=== PATIENT | male | born 1975 | race Hispanic/Latino ===

== ENCOUNTER 2017-11-23 17:42 | Emergency (ER) | payer SELFPAY ==
[~2017-11-23] VITALS: Ht 157.5 cm; Wt 83.4 kg
[2017-11-23 18:14] LABS: HEMATOCRIT 41.8 % (39.0-50.0); IMMATURE GRANULOCYTES 0.7 % (0.0-5.0); MEAN CELL VOLUME 93.9 fL CALC (80.0-100.0); MEAN CORPUSCULAR HGB 31.5 pG CALC (26.0-32.0); MEAN CORPUSCULAR HGB CONC 33.5 g/L CALC (32.0-36.0); NEUT# 4.01 thou/uL (1.82-7.42); RED BLOOD COUNT 4.45 mill/uL (4.70-6.10); RED CELL DISTRI WIDTH 13.2 % (11.5-15.5)
[2017-11-23 18:32] LABS: ALBUMIN 4.6 g/dL (3.2-5.0); ALKALINE PHOSPHATASE 78 u/l (38-126); ANION GAP 19 (6-22 (CALC)); BILIRUBIN, TOTAL 0.8 mg/dL (0.0-1.4); BUN 14 mg/dL (9-20); BUN/CREATININE RATIO 18 (12-20 (CALC)); CARBON DIOXIDE 22 mmol/l (22-30); CHLORIDE 104 mmol/l (95-108); CREATININE 0.7 mg/dL (0.7-1.3); GFR > 60 ML/MIN (>=60 (CALC)); GFR FOR AFR.AMER. > 60 ML/MIN (>=60 (CALC)); LIPASE 54 u/l (23-300); POTASSIUM 3.8 mmol/l (3.5-5.1); SGOT/AST 46 u/l (17-59); SGPT/ALT 57 u/l (21-72); SODIUM 141 mmol/l (137-146); TOTAL PROTEIN 7.7 g/dL (6.3-8.2)
[2017-11-23] MEDS ORDERED: TORADOL PO (19:45)
[2017-11-23 20:30] VITALS: BP 110/53
== END 2017-11-23 20:33 | disposition home or self-care (01) | DRG 313 ==
LOC: ED 17:42 → EDBD 17:42 → ED 17:59
PROVIDERS: Emergency Medicine
DX: R07.9 Chest pain, unspecified (principal); M79.602 Pain in left arm

== ENCOUNTER 2018-10-19 18:34 | Emergency (ER) | payer SELFPAY ==
[~2018-10-19] VITALS: Ht 157.5 cm; Wt 87.8 kg
[~2018-10-19 18:34] MED LIST: TORADOL PO
[2018-10-19] MEDS ORDERED: KEFLEX500 M1 PO (19:37)
[2018-10-19] MEDS ORDERED: BACTRIM DS1 TAB PO (19:37)
[2018-10-19] MEDS ORDERED: BACTROBAN TOP (19:37)
[2018-10-19 19:40] VITALS: BP 127/85
== END 2018-10-19 20:00 | disposition home or self-care (01) | DRG 603 ==
LOC: EDBD 18:34 → ED 18:34
DX: L03.116 Cellulitis of left lower limb (principal); L02.416 Cutaneous abscess of left lower limb; B95.62 Methicillin resistant Staphylococcus aureus infection as the cause of diseases classified elsewhere

== ENCOUNTER 2018-11-20 07:55 | Emergency (ER) | payer SELFPAY ==
[~2018-11-20] VITALS: Ht 157.5 cm; Wt 84.1 kg
[~2018-11-20 07:55] MED LIST changes: +BACTRIM DS1 TAB PO; +BACTROBAN TOP; +KEFLEX500 M1 PO
[2018-11-20 08:28] LABS: HEMATOCRIT 41.2 % (39.0-50.0); HEMOGLOBIN 13.8 g/dl (14.0-18.0); IMMATURE GRANULOCYTES 0.4 % (0.0-5.0); MEAN CELL VOLUME 94.3 fL CALC (80.0-100.0); MEAN CORPUSCULAR HGB 31.6 pG CALC (26.0-32.0); MEAN CORPUSCULAR HGB CONC 33.5 g/L CALC (32.0-36.0); NEUT# 2.47 thou/uL (1.82-7.42); RED BLOOD COUNT 4.37 mill/uL (4.70-6.10); RED CELL DISTRI WIDTH 13.2 % (11.5-15.5)
[2018-11-20 08:40] LABS: URINE BILIRUBIN - DIPSTICK NEGATIVE (NEGATIVE); URINE BLOOD DIPSTICK NEGATIVE (NEGATIVE); URINE COLOR YELLOW; URINE GLUCOSE - DIPSTICK NEGATIVE (NEGATIVE); URINE KETONE NEGATIVE (NEGATIVE); URINE LEUK ESTERASE NEGATIVE (NEGATIVE); URINE NITRITE - DIPSTICK NEGATIVE (Negative); URINE PH 7.5 (4.5-8.0); URINE PROTEIN - DIPSTICK TRACE mg/dL (NEG-TRACE); URINE UROBILINOGEN - DIPSTICK 0.2 E.U./dL (0.2)
[2018-11-20 08:43] LABS: ALBUMIN 4.3 g/dL (3.2-5.0); ALKALINE PHOSPHATASE 82 u/l (38-126); ANION GAP 13 (6-22 (CALC)); BILIRUBIN, TOTAL 1.1 mg/dL (0.0-1.4); BUN 12 mg/dL (9-20); BUN/CREATININE RATIO 17 (12-20 (CALC)); CHLORIDE 104 mmol/l (95-108); CREATININE 0.7 mg/dL (0.7-1.3); GFR > 60 ML/MIN (>=60 (CALC)); GFR FOR AFR.AMER. > 60 ML/MIN (>=60 (CALC)); LIPASE 75 u/l (23-300); POTASSIUM 4.1 mmol/l (3.5-5.1); SGOT/AST 68 u/l (17-59); SODIUM 140 mmol/l (137-146); TOTAL PROTEIN 7.3 g/dL (6.3-8.2)
[2018-11-20 08:44] LABS: CARBON DIOXIDE 27 mmol/l (22-30)
[2018-11-20] MEDS ORDERED: ONDANSETRON4 MG PO (09:21)
[2018-11-20] MEDS ORDERED: METRONIDAZOL500 MG PO (09:21)
[2018-11-20] MEDS ORDERED: CIPROFLOXACN500 MG PO (09:21)
[2018-11-20 09:25] VITALS: BP 113/56
== END 2018-11-20 09:33 | disposition home or self-care (01) | DRG 392 ==
LOC: ED 07:55
PROVIDERS: Family Medicine
DX: K52.9 Noninfective gastroenteritis and colitis, unspecified (principal)
CPT/HCPCS: Q9967

== ENCOUNTER 2019-09-13 13:31 | Emergency (ER) | payer SELFPAY ==
[~2019-09-13 13:31] MED LIST changes: +CIPROFLOXACN500 MG PO; +METRONIDAZOL500 MG PO; +ONDANSETRON4 MG PO
[2019-09-13 14:22] LABS: HEMATOCRIT 43.9 % (39.0-50.0); HEMOGLOBIN 14.3 g/dl (14.0-18.0); IMMATURE GRANULOCYTES 0.4 % (0.0-5.0); MEAN CELL VOLUME 94.4 fL CALC (80.0-100.0); MEAN CORPUSCULAR HGB 30.8 pG CALC (26.0-32.0); MEAN CORPUSCULAR HGB CONC 32.6 g/dL CAL (32.0-36.0); NEUT# 3.63 thou/uL (1.82-7.42); RED BLOOD COUNT 4.65 mill/uL (4.70-6.10); RED CELL DISTRI WIDTH 13.2 % (11.5-15.5)
[2019-09-13 14:55] LABS: ALBUMIN 4.1 g/dL (3.2-5.0); ALKALINE PHOSPHATASE 87 u/l (38-126); ANION GAP 14 (6-22 (CALC)); BUN 10 mg/dL (9-20); BUN/CREATININE RATIO 13 (12-20 (CALC)); CARBON DIOXIDE 23 mmol/l (22-30); CHLORIDE 101 mmol/l (95-108); CREATININE 0.8 mg/dL (0.7-1.3); GFR > 60 ML/MIN (>=60 (CALC)); GFR FOR AFR.AMER. > 60 ML/MIN (>=60 (CALC)); LIPASE 90 u/l (23-300); POTASSIUM 4.5 mmol/l (3.5-5.1); SGOT/AST 56 u/l (17-59); SODIUM 133 mmol/l (137-146); TOTAL PROTEIN 7.3 g/dL (6.3-8.2)
[2019-09-13 15:12] LABS: URINE BILIRUBIN - DIPSTICK NEGATIVE (NEGATIVE); URINE BLOOD DIPSTICK NEGATIVE (NEGATIVE); URINE COLOR YELLOW; URINE GLUCOSE - DIPSTICK NEGATIVE (NEGATIVE); URINE KETONE NEGATIVE (NEGATIVE); URINE LEUK ESTERASE NEGATIVE (NEGATIVE); URINE NITRITE - DIPSTICK NEGATIVE (Negative); URINE PH 8.5 (4.5-8.0); URINE PROTEIN - DIPSTICK TRACE mg/dL (NEG-TRACE); URINE SPECIFIC GRAVITY 1.015
[2019-09-13 15:19] LABS: BILIRUBIN, TOTAL 0.6 mg/dL (0.0-1.4)
[2019-09-13 17:32] VITALS: BP 130/77
[2019-09-13] MEDS ORDERED: ONDANSETRON4 MG PO (17:52)
--- NOTE | 2019-09-17 12:37 | NUR ---
Notified patient of postive Covid results via motor vehicle lecturer Shelly Garcia. Advised patient to stay at home under quarantine until the [facility] contacts him with further instructions. Advised patient to return to ED with elevated temperature or difficulty breathing. Patient verbalized understanding. Chart faxed to [facility] [phone].
== END 2019-09-13 17:33 | disposition home or self-care (01) | DRG 179 ==
LOC: ED 13:31
PROVIDERS: Family Medicine
DX: U07.1 COVID-19 (principal)